=== PATIENT | female | born 1980 | race Caucasian/White ===

== ENCOUNTER 2016-11-03 01:43 | Emergency (ER) | payer BC ==
[~2016-11-03] VITALS: Ht 160 cm; Wt 103.5 kg
[2016-11-03 01:48] VITALS: Ht 160 cm; Wt 103.5 kg
[2016-11-03] MEDS ORDERED: CLON-429 PO (02:29)
--- NOTE | 2016-11-03 02:30 | ERD ---
ER Documentation Chief Complaint Date/Time DATE: 11/03/16 TIME: 02:28 Chief Complaint anxiety, hx-panic attack HPI 36-year-old female presents to emergency department for complaints of episodes of palpitations on and off chest pain for one. Patient has history of anxiety and panic attacks, patient states that it feels different. Patient described the pain as sharp pain, 4/10 scale, intermittent, accompanied with palpitations. Patient denies any dyspnea on exertion or dyspnea on lying down. Patient started to have cough today, there are,, does not cough up any phlegm or blood. Patient denies any shortness breath or wheezing. Patient did not take any medications to help with symptoms. ROS All systems reviewed and are negative except as per history of present illness. Medications Home Meds Reported Medications Clonazepam* (Klonopin*) Unknown Strength Tab, PO Q8H Y for ANXIETY, TAB 11/03/16 Allergies Allergies: Coded Allergies: ciprofloxacin (Verified Allergy, Unknown, 11/03/16) PMhx/Soc Medical and Surgical Hx: pt denies Surgical Hx Hx Psychiatric Problems: Yes (anxiety) FmHx Family History: No coronary disease, No diabetes, No other Physical Exam Vitals Vital Signs Date Time Temp Pulse Resp B/P Pulse Ox O2 Delivery O2 Flow Rate FiO2 11/03/16 01:48 98.2 91 20 156/81 100 Physical Exam GENERAL: The patient is well developed and appropriate for usual state of health, in no apparent distress. CHEST: Clear to auscultation bilaterally. There are no rales, wheezes or rhonchi. HEART: Regular rate and rhythm. No murmurs, clicks, rubs or gallops. No S3 or S4. ABDOMEN: Soft, nontender and nondistended. Good bowel sounds. No rebound or guarding. No gross peritonitis. No gross organomegaly or masses. No Caba sign or McBurney point tenderness. BACK: No midline or flank tenderness. EXTREMITIES: Equal pulses bilaterally. There is no peripheral clubbing, cyanosis or edema. No focal swelling or erythema. Full range of motion. Grossly neurovascularly intact. NEURO: Alert and oriented. Cranial nerves 2-12 intact. Motor strength in all 4 extremities with 5/5 strength. Sensation grossly intact. Normal speech and gait. SKIN: There is no apparent rash or petechia. The skin is warm and dry. HEMATOLOGIC AND LYMPHATIC: There is no evidence of excessive bruising or lymphedema. No gross cervical, axillary, or inguinal lymphadenopathy. Results 24 hrs EKG was done, read by me and is normal sinus rhythm at a rate of 89, normal axis , there is no ST changes or changes in the EKG that indicates any cardiac emergencies at this time. Patient's EKG was also reviewed by Dr. Mcdonald. Impression: no acute findings on EKG PROCEDURE: XR Chest. CLINICAL INDICATION: cough chest pain palpitations TECHNIQUE: Portable single view of the chest COMPARISON: None. FINDINGS: The cardiomediastinal silhouette appears within normal limits. The lungs are clear and no pleural effusion or significant edema is seen. No bony abnormality is seen. IMPRESSION: No definite acute pulmonary disease. RPTAT: [facility]BE Dalia Stein Physician Date Time Electronically viewed and signed by Dalia Stein Physician on 11/03/2016 03 :10 LE/ CC: ELENA LOWRY NP Procedures/MDM Medical Decision Making: Patient symptoms ascites consistent with anxiety, nonspecific chest pain and palpitations at this time. There is low suspicion for cardiopulmonary emergencies at this time. Patient has low risk factors. EKG is normal, there is no changes in the EKG that indicates cardiac emergencies. Chest X-ray does not show cardiopulmonary emergencies at this time. There is low suspicion for aortic aneurysm, myocardial infarction, pneumothorax, pleural effusion, pulmonary embolism, or any other cardiopulmonary emergencies at this time. Patient is advised to see office support specialist for possible Holter monitoring, contract negotiation specialist for anxiety control. Patient is advised to return to emergency department for any worsening symptoms Departure Diagnosis: Primary Impression: Palpitations Additional Impression: Atypical chest pain Condition: Stable Patient Instructions: Chest Pain, Uncertain Cause, Palpitations Additional Instructions: Patient is advised to see office support specialist for possible Holter monitoring, contract negotiation specialist for anxiety control. Patient is advised to return to emergency department for any worsening symptoms ELENA LOWRY NP Nov 03, 2016 02:30
--- NOTE | 2016-11-03 03:11 | RADRPT ---
PROCEDURE: XR Chest. CLINICAL INDICATION: cough chest pain palpitations TECHNIQUE: Portable single view of the chest COMPARISON: None. FINDINGS: The cardiomediastinal silhouette appears within normal limits. The lungs are clear and no pleural e ffusion or significant edema is seen. No bony abnormality is seen. IMPRESSION: No definite acute pulmonary disease. RPTAT: [facility]BE Dalia Stein Physician Date Time Electronically viewed and signed by Dalia Stein Physician on 11/03/2016 03:10 LE/
== END 2016-11-03 03:49 | disposition home or self-care (01) ==
LOC: FTE 01:43
DX: R00.2 Palpitations (principal); R07.89 Other chest pain
CPT/HCPCS: 71010; 93005